=== PATIENT | female | born 1950 | race Caucasian/White ===

== ENCOUNTER 2025-01-28 07:45 | Emergency (ER) | payer OTHER, SELFPAY ==
[2025-01-28 08:03] VITALS: BMI 33.1
--- NOTE | 2025-01-28 08:14 | ED.GENMED ---
History of Present Illness
General
Chief Complaint: Fall
Source: patient
Exam Limitations: none
Time Seen by Provider: 01/28/25 07:58
Nursing documentation reviewed up to this point in time: agreed with
History of Present Illness
History of Present Illness:
The patient is a pleasant 74-year-old female the past medical history of bronchiectasis who suffered a [place] last Saturday, which was 4 days ago. Patient reports that she tripped over a hutch on the car, and fell
into a curb. Patient reports that she hit her right shoulder and her right rib cage. Patient reports she did not hit her head. She denies headache and neck pain. She denies back pain. She denies abdominal pain, nausea, vomiting, bloody stools
or urine. Patient reports that the pain has been constant in her right rib cage, and gets much worse when she coughs. Patient reports that initially she was taking Aleve which was helping with her pain but after taking Aleve this morning, her pain
was still severe in her right rib cage. Patient reports she is having no difficulty walking. She does have some bruising of both lower legs. Patient is not on blood thinners. She denies dizziness and lightheadedness.
Past History
Past History
ED Past Medical History: Other (Bronchiectasis)
ED Past Surgical History: Other
Social History
Tobacco: Non-smoker
Alcohol: Other
Drug: None
Personal: Other
Living: with family (Visiting family. Lives in [place])
Employment: Other
Family History
Family History: Other
Review of Systems
Review of Systems
Allergies reviewed?: Yes
All Other Systems: ROS reviewed and negative except as documented in HPI and ROS
Constitutional: Reports no symptoms
EENT: Reports no symptoms
Respiratory: Reports trouble breathing (Hurts in right rib cage with deep breaths)
Cardiac: Reports no symptoms
ABD/GI: Reports no symptoms
: Reports no symptoms
Musculoskeletal: Reports other (Right rib cage pain, right shoulder pain)
Skin: Reports no symptoms
Neurological: Reports no symptoms
Endocrine: Reports no symptoms
Hematologic/Lymphatic: Reports no symptoms
Psychiatric: Reports no symptoms
Phy Exam
Physical Exam
Physical Exam:
GENERAL: Alert, fully awake, no acute distress but holding right rib cage area. No areas of scalp tenderness or contusion
EYE: pupils equal and reactive. anicteric
NECK: Supple, nontender C-spine
ENT: Neck is supple.
CARDIAC: Regular rate and rhythm. no murmur. Right mid and lower lateral rib cage tenderness without areas of ecchymoses.
LUNGS: Clear breath sounds bilaterally,
ABDOMEN: Soft, nondistended, without focal tenderness, no r/g, no cvat. No vertebral spine tenderness
NEUROLOGICAL: Alert and oriented x3, no focal neuro deficits. Gait is jackson and steady.
SKIN: Warm and dry, normal color, skin intact. No rash. Mild ecchymoses and abrasion just distal to bilateral knees
MUSCULOSKELETAL: No C/C/E. peripheral pulses are full and equal b/l. No palpable tenderness. Mild right lateral humeral area tenderness without any sign of ecchymoses, swelling or deformity. Nontender pelvis and hips
PSYCH: Normal and appropriate interaction.
Course
Orders/Labs/Results
Orders:
Orders
01/28/25 08:09
Shoulder, Right 2 Views [CR Shoulder - Right Min 2 View] Urgent
Comment:
Reason For Exam: fall, R shoulder pain
01/28/25 08:10
Tramadol HCl [Ultram] 75 mg PO NOW STA
Ribs, Right 3 View W/PA Chest [CR Ribs-right 3 Vw W/pa Chest*] Urgent
Comment:
Reason For Exam: fell, R lateral rib cage pain
Vital Signs
Initial and Last Documented VS:
Initial Vital Signs
Temp Pulse Resp Pulse Ox
97.8 F 69 18 95
01/28/25 07:47 01/28/25 07:47 01/28/25 07:47 01/28/25 07:47
Last Documented Vital Signs
Temp Pulse Resp BP Pulse Ox
97.8 F 64 15 106/60 99
01/28/25 07:47 01/28/25 09:07 01/28/25 09:07 01/28/25 09:09 01/28/25 09:07
MDM/Problems Addressed
Differential Diagnosis Includes:
Right sided rib fractures, right pulmonary contusion, chest wall contusion, right humeral contusion
MDM/Problems Addressed:
Patient presents with acute right rib cage pain and right shoulder pain after a trip and fall
Chronic conditions affecting care:
Bronchiectasis can make patient develop pneumonia more easily, especially after rib fracture
Acute Exacerbation and/or Progression of Chronic Illness:
Patient is breathing comfortably, as I do not see sign of acute exacerbation of bronchiectasis
*Radiology
Radiology exam reviewed: preliminary read by ED provider (Right shoulder, chest x-ray and right rib series reviewed by me. No acute fracture) and radiology read reviewed
*Pulse Oximetry
SaO2: 96
Oxygen Mode of Delivery: Room air
Patient hypoxic: no
Comment: 96% on room air
*Wet End Supervisor Interpretation
Rate: Wet End Supervisor- N/A
*Critical Care Note
Total Time (30-74mins, 75-104mins- exclusive of procedures): Not Applicable
Data Reviewed
Source: patient
Patient Management
Social determinants of health affecting care: Living situation
Escalation/DeEscalation of care consider admission/obs:
Patient states her pain is improved with tramadol. She is able to get up and walk around comfortably. She is breathing comfortably.
ED Attending Note
-
Portions of this chart may have been created with voice recognition software.� Occasional wrong word or��sound alike� substitutions may have occurred due to the inherent limitations of voice recognition software.
Discharge Plan
Departure
Patient Disposition: Home (Routine Discharge)
Date of Disposition: 01/28/25
Time of Disposition: 09:36
Patient with high blood pressure during this ER visit?: No
Condition: Good
Covid-19: Not Applicable
Discharge Problem:
Contusion of rib on right side, Contusion of right shoulder
Instructions: How to use an incentive spirometer, Rib fracture or bruised rib - ED discharge instructions
Prescriptions:
New
tramadol 50 mg tablet
50 mg PO Q6H PRN (Reason: Pain) Qty: 10 0RF
No Action
Nucala
1 dose SC MONTHLY
Skyrizi
1 dose SC [id number]
alendronate
70 mg PO WEEKLY
Referrals:
NONE,* [Family Provider, Internal Medicine]
Activity Restrictions/Additional Instructions:
Take 1000 mg of Tylenol (also known as acetaminophen) every 4-6 hours for pain. In addition to the Tylenol, you should also take Advil 400 mg (also known as Motrin and ibuprofen) every 6-8 hours for the pain. If the pain becomes severe, you can
also take 1 tablet of the tramadol every 6 hours.
Interventions
Interventions:
*Risk Screen - Suicide Last Done: 01/28/25 07:47
*General Assessment Last Done: 01/28/25 07:47
*Neglect/Abuse Screening Last Done: 01/28/25 07:47
*ED- Fall Risk Assessment Last Done: 01/28/25 08:03
*ED COVID-19 Vaccine History Last Done: 01/28/25 08:03
ED-Musculoskeletal Assessment Last Done: 01/28/25 08:04
ED- Neurological Assessment Last Done: 01/28/25 07:53
ED-Skin Assessment Last Done: 01/28/25 08:05
Discharge Date and Time
Print Language: BULGARIAN
[2025-01-28] MEDS: ULTRAM 75 MG PO (08:15)
[2025-01-28 09:09] VITALS: BP 106/60
== END 2025-01-28 10:00 | disposition home or self-care (01) ==
LOC: EMR 07:45
PROVIDERS: EMERGENCY PHYSICIAN Emergency Medicine
DX: S20.211A Contusion of right front wall of thorax, initial encounter (principal); S40.011A Contusion of right shoulder, initial encounter; S80.11XA Contusion of right lower leg, initial encounter; S80.12XA Contusion of left lower leg, initial encounter; W01.198A Fall on same level from slipping, tripping and stumbling with subsequent striking against other object, initial encounter; J98.4 Other disorders of lung
CPT/HCPCS: 99284; 71101; 73030